=== PATIENT | male | born 1980 | race Caucasian/White ===

== ENCOUNTER 2019-04-19 17:36 | Outpatient (CLI) | payer BC, SELFPAY ==
--- NOTE | ~2019-04-19 | CT_ITS ---
EXAMINATION: CT BRAIN W/O DATE: 04/19/2019 18:05 INDICATION: Headache. History of subdural hematoma. TECHNIQUE: Computed tomography (CT) of the head was performed without intravenous contrast. The dose- length product was 681.00 mGy-cm. The mA was adjusted according to patient size. Iterative reconstruc tion technique was employed. COMPARISON: CT dated 08/02/2016 FINDINGS: Normal brain parenchymal volume for age. Normal lindquist-white differentiation. No acute intrac ranial hemorrhage, infarction, mass or mass effect. There is a right frontal-parietal craniotomy defe ct. No ventriculomegaly or midline shift. Midline sagittal images demonstrate a normal corpus callosum, c raniovertebral junction and sella turcica. Basilar cisterns are patent. Paranasal sinuses and mastoids are pneumatized. IMPRESSION: 1. No acute intracranial abnormality. Reviewed, dictated and finalized at location A. [employer]
== END 2019-04-19 17:37 | disposition home or self-care (01) ==
PROVIDERS: PCP Internal Medicine; Visit Provider Internal Medicine
DX: R51 Headache (principal); Z86.79 Personal history of other diseases of the circulatory system
CPT/HCPCS: 70450

== ENCOUNTER → 2020-05-17 01:56 | Outpatient (CLI) | payer BC, SELFPAY ==
[2020-05-17 19:28] LABS: SARS-CoV-2 RNA PCR Negative
== END ==
PROVIDERS: PCP Internal Medicine; Visit Provider Internal Medicine Gastroenterology
DX: Z20.822 Contact with and (suspected) exposure to COVID-19 (principal); Z01.812 Encounter for preprocedural laboratory examination
CPT/HCPCS: C9803; U0003; U0005

== ENCOUNTER 2020-05-20 01:43 | Day surgery (SDC) | payer BC, SELFPAY ==
[2020-05-07 11:37] VITALS: BMI 24.2
[2020-05-20 08:17] VITALS: BP 109/67; PULSE 62; RESP 16; TEMP 36.6; O2SAT 97
[2020-05-20] MEDS: LACTATED RINGERS 1,000 ML 150 ML IV CONT (08:18)
--- NOTE | 2020-05-20 09:24 | WPDANESEPPF ---
Anes - Initial Pre Proc Eval Procedure: Operation Date: 05/20/20 09:30 Proposed Procedures p Screening Colonoscopy - Hilario Adrian MD Date/Time: 05/20/20 09:24 Surgeon: Hilario Adrian MD Pre Op Diagnosis: family hx of colon ca, neoplasm screening Patient Data Age: 39 Gender: M Height: 6 ft Weight: 79.3 kg Last Vital Signs Temp 97.9 F 05/20/20 08:17 Pulse 62 05/20/20 08:17 Resp 16 05/20/20 08:17 BP 109/67 05/20/20 08:17 Pulse Ox 97 05/20/20 08:17 Allergies Allergy/AdvReac Type Severity Reaction Status Date / Time No Known Allergies Allergy Verified 05/20/20 08:12 Home Medications Medication Instructions Recorded Confirmed Type No Home Medications 05/20/20 05/20/20 History Patient hx anesthesia problems: none Family hx anesthesia problems: none PMFSH Past Medical History Medical History (Updated 05/20/20 @ 09:19 by Khanh Hernandez MD) Hyperlipidemia Family History Family History Father Hypertension Family history of diabetes mellitus in first degree relative Family history of malignant neoplasm of thyroid Patient's father is in good health Mother Hypertension Family history of diabetes mellitus in first degree relative Patient's mother is in good health Social History Social History Smoking status: Never smoker Alcohol intake: current Drinks per week: 2 Alcohol use details: DRINKS Substance use: never Substance use type: does not use Living arrangements: with family Spiritual care concerns: No Anes - Eval Final PreProcedure Day of Procedure 05/20/20 09:24 Patient weight: normal Heart: regular rate and rhythm Lungs: clear to auscultation Airway: Mallampati scale class II Neurological: alert and oriented Last oral intake: >/= 8 hours ASA classification: II Emergent: no Anesthetic plan: proceed Anesthesia type and monitoring: general GIVS and standard monitoring Informed Consent: The patient's anesthetic plan and its attendant risks and benefits were discussed with the patient/family/POA. Questions were solicited and answers provided to the satisfaction of the patient/family/POA.
--- NOTE | 2020-05-20 09:29 | PM.HPGS ---
History of Present Illness History of Present Illness Consent: Risks, benefits, and alternatives have been discussed and questions answered. Patient agrees to proceed with procedure. Chief complaint: family hx of colon ca, neoplasm screening Narrative: Blade Garcia is a 39 year old male Referred for colon cancer screening. His father had colon cancer Review of Systems Review of Systems: All systems reviewed & are unremarkable except as noted in HPI and below PMFSH Past Medical History Medical History Hyperlipidemia Family History Family History Father Hypertension Family history of diabetes mellitus in first degree relative Family history of malignant neoplasm of thyroid Patient's father is in good health Mother Hypertension Family history of diabetes mellitus in first degree relative Patient's mother is in good health Social History Social History Smoking status: Never smoker Alcohol intake: current Drinks per week: 2 Alcohol use details: DRINKS Substance use: never Substance use type: does not use Living arrangements: with family Spiritual care concerns: No Meds Home Medications and Allergies Home Medications Medication Instructions Recorded Confirmed Type No Home Medications 05/20/20 05/20/20 History Allergies Allergy/AdvReac Type Severity Reaction Status Date / Time No Known Allergies Allergy Verified 05/20/20 08:12 Vital Signs Vital Signs - 24 hr 05/20/20 08:17 Temperature 36.6 C Pulse Rate 62 Respiratory Rate 16 Blood Pressure 109/67 Pulse Oximetry 97 Exam Resp: Auscultation: clear to auscultation bilaterally Cardio: Rate: regular rate Rhythm: regular rhythm GI: GI Palp: Yes Soft to palpation and No Tenderness to palpation present (GI) Assessment and Plan Assessment and plan (1) Family hx of colon cancer: Code(s): Z80.0 - Family history of malignant neoplasm of digestive organs Status: Acute Assessment and Plan: Colonoscopy with possible biopsy or polypectomy or cautery or injection of substances. (2) Colon cancer screening: Code(s): Z12.11 - Encounter for screening for malignant neoplasm of colon Status: Acute Assessment and Plan: Colonoscopy with possible biopsy or polypectomy or cautery or injection of substances.
[2020-05-20 09:58] VITALS: BP 105/63; PULSE 70; RESP 20; O2SAT 98
[2020-05-20 10:08] VITALS: BP 112/79; PULSE 67; RESP 20; O2SAT 100
== END 2020-05-20 10:26 | disposition home or self-care (01) ==
PROVIDERS: PCP Internal Medicine; Visit Provider Internal Medicine Gastroenterology
PROC: 0DJD8ZZ Inspection of Lower Intestinal Tract, Via Natural or Artificial Opening Endoscopic (ICD-10-PCS; CPT 45378; principal; 2020-05-20 09:30)
DX: Z12.11 Encounter for screening for malignant neoplasm of colon (principal); Z80.0 Family history of malignant neoplasm of digestive organs; E78.5 Hyperlipidemia, unspecified
CPT/HCPCS: 45378; C9803; J2704; J7120; U0003; U0005